=== PATIENT | female | born 1965 | race Caucasian/White ===

== ENCOUNTER 2022-06-14 06:29 | Day surgery (SDC) | payer BC, OTHER ==
[2022-06-14] MEDS ORDERED: Propofol 200 MG/20 ML SDV ONE ×2 (07:17→07:54)
[2022-06-14] MEDS ORDERED: fentaNYL 100 MCG/2 ML SDV ONE (07:17)
[2022-06-14] MEDS ORDERED: Midazolam 1 MG/ML 2 ML SDV ONE (07:17)
[2022-06-14] MEDS ORDERED: Lactated Ringers 1,000 ML IV SCH (07:30)
== END 2022-06-14 09:20 | disposition home or self-care (01) ==
LOC: JP.SDS 06:29
PROVIDERS: ATTEND Student in an Organized Health Care Education/Training Program
DX: Z12.11 Encounter for screening for malignant neoplasm of colon (principal); D12.0 Benign neoplasm of cecum; K21.9 Gastro-esophageal reflux disease without esophagitis
CPT/HCPCS: 45385; 88305; J2250; J2704; J3010; J7120